=== PATIENT | female | born 1995 | race African-American/Black ===

== ENCOUNTER 2017-08-10 13:39 | Emergency (ER) | payer BC ==
[2017-08-10] MEDS ORDERED: Oxymetazoline HCl 0.05% ( 15 ML ) ONE (14:02)
== END 2017-08-10 14:34 | disposition home or self-care (01) ==
LOC: SCSER 13:39
DX: R04.0 Epistaxis (principal); E78.5 Hyperlipidemia, unspecified; E10.9 Type 1 diabetes mellitus without complications
CPT/HCPCS: 99283

== ENCOUNTER 2019-10-02 23:43 | Emergency (ER) | payer BC ==
[2019-10-03 00:25] LABS: Bacteria/HPF None Seen HPF (None Seen); Bilirubin Negative (Negative); Blood, Urine Negative (Negative); Clarity Clear (Clear); Glucose, Urine (Dipstick) Greater than 1000 mg/dL (Negative); Leukocyte 250 Leu/uL (Negative); Nitrite Negative (Negative); Protein, Urine (Dipstick) Negative (Neg-Trace); RBC/HPF None Seen HPF (0-3); Squamous Epithelial 0-3 HPF (0-3); Urobilinogen Normal mg/dL (Less than 2); WBC/HPF 21-50 HPF (0-3)
[2019-10-03 00:26] LABS: Pregnancy Test - Urine (BHCG) Negative (Negative); Pregu Control Background? CLEAR/WHITE (CLR/WHITE); Pregu Control Bar Appear? YES (CONTROL BAR); Specific Gravity 1.023 (1.002-1.036)
== END 2019-10-03 00:44 | disposition home or self-care (01) ==
LOC: ERS 23:43
DX: N39.0 Urinary tract infection, site not specified (principal); E78.5 Hyperlipidemia, unspecified; E78.00 Pure hypercholesterolemia, unspecified; I10 Essential (primary) hypertension; E10.9 Type 1 diabetes mellitus without complications
CPT/HCPCS: 81003; 81015; 81025; 87077; 87086; 87186; 99283

== ENCOUNTER 2023-09-30 00:56 | Emergency (ER) | payer BC, SELFPAY ==
[2023-09-30 01:48] LABS: #Monocytes 0.6 thou/uL (0.11-0.59); #Neutrophils 3.4 thou/uL (1.40-6.50); %Basophils 0.2 % (0.0-1.0); %Eosinophils 0.7 % (0.0-10.0); %Monocytes 11.4 % (0.0-10.0); %Neutrophils 60.3 % (42.0-75.0); Hematocrit 37.4 % (36.0-47.0); Hemoglobin 12.4 g/dL (12.0-16.0); Mean Corpuscular HGB CONC 33.2 g/dL (32.0-36.0); Mean Corpuscular Hemoglobin 26.7 pg (27.0-31.0); Mean Corpuscular Volume 80.6 fl (78.0-98.0); Mean Platelet Volume 11.2 fL (7.4-10.4); Platelet Count 229 10x3/uL (130-400); RBC Distribution Width 13.6 % (11.5-14.5); Red Blood Cell (RBC) Count 4.64 mill/uL (4.20-5.40); White Blood Cell (WBC) Count 5.6 10x3/uL (4.8-10.8)
[2023-09-30 01:53] LABS: Actual Bicarbonate (HCO3v) 19.2 mEq/L (22-28); Analyzer IN Cardio ER; Base Excess -5.1 mEq/L (-2.0 to +3.0); Calcium, Ionized (venous) 1.08 mmol/L (1.16-1.32); Chloride (VBG) 101 mmol/L (98-106); Hematocrit-VBG 39 % (36.0-47.0); Hemoglobin (Hb) 13.4 g/dL (11.7-15.5); Potassium (VBG) 4.54 mmol/L (3.70-5.30); Sodium 135 mmol/L (133-146); pH (venous) 7.373 (7.32-7.43)
[2023-09-30 02:08] LABS: BHCG - Serum Negative (NEGATIVE); Pregs Control Background? CLEAR/WHITE (CLR/WHITE); Pregs Control Bar Appear? YES (CONTROL BAR)
[2023-09-30 02:12] LABS: Acetaminophen Less than 10 mcg/mL (10.0-30.0); Alcohol Less than 10.0 mg/dL (Less than 10); INR-International Normal Ratio 0.9; PTT 24.3 sec (22.9-36.1); Prothrombin Time 12.6 sec (12.0-14.7); Salicylate Less than 8.0 mg/dL (15.0-30.0)
[2023-09-30 02:20] LABS: ALT (SGPT) 14 U/L (8-55); AST (SGOT) 15 U/L (5-34); Albumin 4.1 g/dL (3.5-5.0); Alkaline Phosphatase 119 U/L (40-110); Anion Gap 13 mmol/L (10-20); BUN (Urea Nitrogen) 10 mg/dL (7.0-18.7); Bilirubin, Total 0.4 mg/dL (0.2-1.2); Calc. Creatinine Clearance 0 mL/min (70-130); Calcium 8.5 mg/dL (7.8-10.44); Carbon Dioxide 19 mmol/L (22-29); Chloride 104 mmol/L (98-107); Estimated GFR 62; Globulin 2.9 g/dL (2.4-3.5); Lipase 7 U/L (8-78); Magnesium 2.1 mg/dL (1.6-2.6); Potassium 4.5 mmol/L (3.5-5.1); Sodium 131 mmol/L (136-145)
[2023-09-30 02:22] LABS: Troponin I Less than 0.010 ng/mL (< 0.028)
[2023-09-30 02:23] LABS: Glucose 636 mg/dL (70-105)
[2023-09-30 03:01] LABS: Bacteria/HPF None Seen HPF (None Seen); Bilirubin Negative (Negative); Blood, Urine Negative (Negative); CAUTI Indications for Culture Dysuria,urgency,freq; Clarity Clear (Clear); Glucose, Urine (Dipstick) Greater than 1000 mg/dL (Negative); Ketone, Urine Negative (Negative); Leukocyte Negative Leu/uL (Negative); Nitrite Negative (Negative); Protein, Urine (Dipstick) Negative (Neg-Trace); RBC/HPF 0-3 HPF (0-3); Specific Gravity, Urine 1.021 (1.002-1.036); Squamous Epithelial 0-3 HPF (0-3); Urobilinogen Normal mg/dL (Less than 2); pH, Urine 5.5 (5.0-9.0)
[2023-09-30 03:02] LABS: Urine Culture Reflex No No
[2023-09-30 04:23] LABS: Amphetamine Not Detected (NotDetected); Barbiturates Screen Not Detected (NotDetected); Benzodiazepine Screen Not Detected (NotDetected); Cocaine Metabolite Screen Not Detected (NotDetected); Methadone Not Detected (NotDetected); Methamphetamine Not Detected (NotDetected); Opiate Screen Not Detected (NotDetected); Oxycodone Screen Not Detected (NotDetected); Phencyclidine (PCP) Not Detected (NotDetected); THC/Cannabinoid Screen Not Detected (NotDetected); Tricyclic Screen Not Detected (NotDetected)
[2023-09-30] MEDS ORDERED: guaiFENesin ER 600 MG TAB ONE (04:45)
== END 2023-09-30 05:23 | disposition home or self-care (01) ==
LOC: ERS 00:56
DX: E10.65 Type 1 diabetes mellitus with hyperglycemia (principal); I10 Essential (primary) hypertension; Z79.4 Long term (current) use of insulin; Z79.899 Other long term (current) drug therapy
CPT/HCPCS: 36415; 36416; 71045; 80053; 80306; 80307; 81001; 82010; 82805; 83605; 83690; 83735; 83930; 84443; 84703; 85610; 85730; 93005; 94760; 96360; 96361

== ENCOUNTER 2025-05-23 03:51 | Inpatient (IN) | payer BC ==
[2025-05-23] MEDS ORDERED: Ketorolac Tromethamine 30 MG (1 mL) VIAL ONE (05:08)
[2025-05-23] MEDS ORDERED: LevoFLOXacin 750 mg/D5W 150 ml Premix Bag ONE (06:45)
[2025-05-23 06:55] LABS: Hematocrit 31.7 % (36.0-47.0); Hemoglobin 10.1 g/dL (12.0-16.0); Mean Corpuscular Hemoglobin 26.6 pg (27.0-31.0); Mean Corpuscular Volume 83.4 fL (78.0-98.0); Platelet Count 168 10x3/uL (130-400); Red Blood Cell (RBC) Count 3.80 mill/uL (4.20-5.40); White Blood Cell (WBC) Count 10.44 10x3/uL (4.8-10.8)
[2025-05-23 07:02] LABS: ALT (SGPT) 10 U/L (Less than 34); AST (SGOT) 16 U/L (11-34); Albumin 2.8 g/dL (3.1-4.5); Alkaline Phosphatase 149 U/L (40-110); Anion Gap 17 mmol/L (10-20); BUN (Urea Nitrogen) 23 mg/dL (7.0-18.7); Bilirubin, Total 0.6 mg/dL (0.3-1.2); Calc. Creatinine Clearance 0 mL/min (70-130); Calcium 7.7 mg/dL (7.8-10.44); Carbon Dioxide 19 mmol/L (22-29); Chloride 105 mmol/L (98-107); Globulin 4.0 g/dL (2.4-3.5); Glucose 315 mg/dL (70-105); INR-International Normal Ratio 1.1; Potassium 4.5 mmol/L (3.5-5.1); Prothrombin Time 14.8 sec (12.0-14.7); Sodium 136 mmol/L (136-145)
[2025-05-23 07:03] LABS: PTT 31.7 sec (22.9-36.1)
[2025-05-23 07:22] LABS: Platelet Adequacy Comment Platelets Normal; RBC Morphology Within Normal Limits; Smudge Cells 5.0 %
[2025-05-23] MEDS ORDERED: Glucagon 1 MG/ML KIT IM PRN (07:31)
[2025-05-23] MEDS ORDERED: Dextrose 50% Abboject 50 ML SYRINGE SLOW IVP PRN (07:31)
[2025-05-23] MEDS ORDERED: Famotidine/PF 20 mg/2ml Vial ONE (07:46)
[2025-05-23] MEDS: Famotidine/PF 20 mg/2ml Vial SLOW IVP SCH (07:57)
[2025-05-23] MEDS ORDERED: PROPOFOL 20 ML ONE (10:25)
[2025-05-23] MEDS ORDERED: fentaNYL PF 100 MCG/2 ML SYRINGE ONE (10:25)
[2025-05-23] MEDS ORDERED: Rocuronium Bromide 10 MG/ML (10ML VIAL) ONE (10:43)
[2025-05-23] MEDS ORDERED: Lidocaine 1% PF 5 ML VIAL ONE (10:43)
[2025-05-23] MEDS ORDERED: Ondansetron PF 4 MG/2 ML Vial ONE (10:46)
[2025-05-23] MEDS ORDERED: SUGAMMADEX SODIUM 200 MG/2 ML VIAL ONE (11:51)
[2025-05-23] MEDS ORDERED: Ketorolac Tromethamine 30 MG (1 mL) VIAL IVP PRN (12:00)
[2025-05-23 13:57] VITALS: BMI 34.0
[2025-05-23] MEDS: Insulin Glargine 30 UNITS/0.3 ML VIAL SC SCH (22:16)
[2025-05-24 05:00] LABS: #Basophils Less than 0.03 10x3/uL (0.0-0.2); #Eosinophils Less than 0.03 10x3/uL (0.0-0.7); #Monocytes 1.02 10x3/uL (0.11-0.59); #Neutrophils 6.84 10x3/uL (1.40-6.50); %Basophils 0.1 % (0.0-1.0); %Eosinophils 0.0 % (0.0-10.0); %Lymphocytes 14.3 % (21.0-51.0); %Monocytes 11.1 % (0.0-10.0); %Neutrophils 74.2 % (42.0-75.0); Hematocrit 31.1 % (36.0-47.0); Hemoglobin 9.9 g/dL (12.0-16.0); Mean Corpuscular Hemoglobin 26.5 pg (27.0-31.0); Mean Corpuscular Volume 83.2 fL (78.0-98.0); Platelet Count 193 10x3/uL (130-400); Red Blood Cell (RBC) Count 3.74 mill/uL (4.20-5.40); White Blood Cell (WBC) Count 9.22 10x3/uL (4.8-10.8)
[2025-05-24 05:24] LABS: Anion Gap 12 mmol/L (10-20); BUN (Urea Nitrogen) 19 mg/dL (7.0-18.7); Calc. Creatinine Clearance 145 mL/min (70-130); Calcium 7.4 mg/dL (7.8-10.44); Carbon Dioxide 21 mmol/L (22-29); Chloride 107 mmol/L (98-107); Glucose 288 mg/dL (70-105); Potassium 4.7 mmol/L (3.5-5.1); Sodium 135 mmol/L (136-145)
[2025-05-24] MEDS: LevoFLOXacin 750 mg/D5W 750 MG in Premix 1 BAG IVPB SCH (06:08)
[2025-05-24] MEDS: Losartan 25 MG TAB PO SCH (09:59)
[2025-05-24] MEDS: Acetaminophen 325 MG TAB PO PRN (10:13)
[2025-05-24 12:07] LABS: Glucose, Urine (Dipstick) Greater than 1000 mg/dL (Negative); Leukocyte 75 Leu/uL (Negative); Protein, Urine (Dipstick) 50 mg/dL (Neg-Trace); RBC/HPF Greater than 50 HPF (0-3); Specific Gravity, Urine 1.013 (1.002-1.036)
[2025-05-24 12:17] LABS: Bacteria/HPF 1+ HPF (None Seen)
[2025-05-24] MEDS: Lisdexamfetamine Dimesylate [Vyvanse] 30 MG Capsule PO SCH (13:23)
[2025-05-24] MEDS: Insulin Glargine 30 UNITS/0.3 ML VIAL SC SCH (20:46)
[2025-05-25] MEDS: Ketorolac Tromethamine 30 MG (1 mL) VIAL IVP SCH (00:49)
[2025-05-26 04:42] LABS: #Basophils Less than 0.03 10x3/uL (0.0-0.2); #Eosinophils 0.14 10x3/uL (0.0-0.7); #Monocytes 0.74 10x3/uL (0.11-0.59); #Neutrophils 3.33 10x3/uL (1.40-6.50); %Basophils 0.2 % (0.0-1.0); %Eosinophils 2.2 % (0.0-10.0); %Lymphocytes 33.6 % (21.0-51.0); %Monocytes 11.6 % (0.0-10.0); %Neutrophils 51.9 % (42.0-75.0); Hematocrit 30.3 % (36.0-47.0); Hemoglobin 9.7 g/dL (12.0-16.0); Mean Corpuscular Hemoglobin 26.4 pg (27.0-31.0); Mean Corpuscular Volume 82.3 fL (78.0-98.0); Platelet Count 281 10x3/uL (130-400); Red Blood Cell (RBC) Count 3.68 mill/uL (4.20-5.40); White Blood Cell (WBC) Count 6.40 10x3/uL (4.8-10.8)
[2025-05-26 04:54] LABS: AST (SGOT) 13 U/L (11-34); Albumin 2.3 g/dL (3.1-4.5); Alkaline Phosphatase 121 U/L (40-110); Anion Gap 10 mmol/L (10-20); BUN (Urea Nitrogen) 7 mg/dL (7.0-18.7); Bilirubin, Total 0.2 mg/dL (0.3-1.2); Calc. Creatinine Clearance 183 mL/min (70-130); Calcium 8.0 mg/dL (7.8-10.44); Carbon Dioxide 22 mmol/L (22-29); Chloride 110 mmol/L (98-107); Globulin 3.6 g/dL (2.4-3.5); Glucose 119 mg/dL (70-105); Potassium 3.8 mmol/L (3.5-5.1); Sodium 138 mmol/L (136-145)
[2025-05-26 04:55] LABS: ALT (SGPT) 7 U/L (Less than 34); Magnesium 2.2 mg/dL (1.6-2.6)
[2025-05-26 11:21] VITALS: BP 136/98; TEMP 98.4
== END 2025-05-26 13:32 | disposition home or self-care (01) | DRG 854 ==
LOC: ERS 03:51 → ERHOLD 06:28 → 2NO 13:31
PROVIDERS: ADMIT Internal Medicine; ATTEND Emergency Medicine
PROC: 0T7B8DZ Dilation of Bladder with Intraluminal Device, Via Natural or Artificial Opening Endoscopic (ICD-10-PCS; principal; 2025-05-23)
PROC: 3E03329 Introduction of Other Anti-infective into Peripheral Vein, Percutaneous Approach (ICD-10-PCS; 2025-05-23)
DX: A41.9 Sepsis, unspecified organism (principal); N20.2 Calculus of kidney with calculus of ureter; E10.9 Type 1 diabetes mellitus without complications; I10 Essential (primary) hypertension; F41.9 Anxiety disorder, unspecified; F32.A Depression, unspecified; Z98.890 Other specified postprocedural states; F90.9 Attention-deficit hyperactivity disorder, unspecified type; Z79.4 Long term (current) use of insulin; Z79.899 Other long term (current) drug therapy
CPT/HCPCS: 36415; 36416; 74420; 80048; 80053; 81001; 83036; 83735; 85025; 85610; 85730; 87086; 96374; 96375; C1769; C2617; J1100; J1308; J1815; J1885; J1956; J2405; J2704; J7030; Q9967

== ENCOUNTER 2025-06-13 09:05 | Day surgery (SDC) | payer BC ==
[2025-06-01 09:10] VITALS: BMI 33.1
[2025-06-13] MEDS ORDERED: Dextrose 50% Abboject 50 ML SYRINGE ONE (09:38)
[2025-06-13] MEDS ORDERED: Ondansetron PF 4 MG/2 ML Vial ONE (11:49)
[2025-06-13] MEDS ORDERED: PROPOFOL 40 ML ONE (11:49)
[2025-06-13] MEDS ORDERED: Rocuronium Bromide 10 MG/ML (10ML VIAL) ONE (11:49)
[2025-06-13] MEDS ORDERED: SUGAMMADEX SODIUM 200 MG/2 ML VIAL ONE ×2 (12:04→13:36)
[2025-06-13] MEDS ORDERED: LevoFLOXacin D5W 500 mg (100 mL) BAG ONE (12:07)
[2025-06-13] MEDS ORDERED: HYDROcodone/Acetaminophen 5/325 mg Tablet ONE (16:09)
[2025-06-13] MEDS ORDERED: hydrALAZINE 20 MG/ML VIAL ONE (16:59)
== END 2025-06-13 17:48 | disposition home or self-care (01) ==
LOC: SDC 09:05
PROVIDERS: ATTEND Urology
DX: N13.30 Unspecified hydronephrosis (principal); E10.9 Type 1 diabetes mellitus without complications; Z90.89 Acquired absence of other organs
CPT/HCPCS: 36416; 74420; C1758; C1769; C2617; J0360; J1100; J1956; J2250; J2405; J2704; J3010; J7999